=== PATIENT | male | born 1970 | race Caucasian/White ===

== ENCOUNTER 2016-06-17 10:20 | Emergency (ER) | payer MEDICARE | END 2016-06-17 12:03 | disposition home or self-care (01) | LOC: ER 10:20 | DX: R07.89 Other chest pain (principal); R00.1 Bradycardia, unspecified; J84.9 Interstitial pulmonary disease, unspecified; F11.20 Opioid dependence, uncomplicated; J44.9 Chronic obstructive pulmonary disease, unspecified; F17.210 Nicotine dependence, cigarettes, uncomplicated ==